=== PATIENT | female | born 1975 | race Caucasian/White ===

== ENCOUNTER 2018-07-17 17:53 | Emergency (ER) | payer OTHER ==
[~2018-07-17] VITALS: Ht 162.6 cm; Wt 77.1 kg
[~2018-07-17 17:53] MED LIST: ALPR1 PO; ARIP10 PO; ATEN50 PO; CARBOPLATIN; CLON.5 PO; CONEST1.25 PO; FLUO10 PO; HYDACE5 PO; LISI5 PO; METR500 PO; MULVITMIND PO; NAPR500 PO; NITR100CA PO; PRAV20 PO; QUET100 PO; SIRO1 PO; SOTO80 PO; SULTRIDS PO; TACR1 PO; TRAZ100 PO; VENL150ER PO; [UNRECOGNIZED DRUG - REMARK]
[2018-07-17] MEDS ORDERED: Naprosyn500 MG PO (20:39)
[2018-07-17] MEDS ORDERED: Robaxin500 MG PO (20:39)
[2018-07-17] MEDS ORDERED: ROSU5 PO (20:53)
[2018-07-17] MEDS ORDERED: ASPI81CH PO (20:54)
== END 2018-07-17 20:58 | disposition home or self-care (01) ==
LOC: ER 17:53
DX: M54.2 Cervicalgia (principal); Z88.8 Allergy status to other drugs, medicaments and biological substances; Z79.899 Other long term (current) drug therapy; Z87.891 Personal history of nicotine dependence
CPT/HCPCS: 99283

== ENCOUNTER 2019-03-06 08:55 | Emergency (ER) | payer OTHER ==
[~2019-03-06] VITALS: Ht 162.6 cm; Wt 74.8 kg
[~2019-03-06 08:55] MED LIST changes: +ASPI81CH PO; -FLUO10 PO; +Hair, Skin & N1 EACH PO; -LISI5 PO; +Lisinopril2.5 MG PO; -MULVITMIND PO; +Naprosyn500 MG PO; +Prozac40 MG PO; +ROSU5 PO; +Robaxin500 MG PO
[2019-03-06 09:34] LABS: Source, Urine Clean Catch
[2019-03-06 09:46] LABS: Blood, Urine 4+ (Neg); Glucose Qualitative, Urine Neg (Neg); Ketones, Urine 1+ (Neg); Leukocyte Esterase, Urine 1+ (Neg); Nitrite, Urine Pos (Neg); Protein, Urine 3+ (Neg); Specific Gravity, Urine 1.025 (1.003-1.022); Urobilinogen, Urine 2+ (Normal)
[2019-03-06 09:55] LABS: Appearance, Urine Hazy (Clear); Bacteria Mod /hpf; Bilirubin, Urine 2+ (Neg); Color, Urine Yellow (P-Yellow); Mucus Light (0-Heavy); Red Blood Cells, Urine 0-2 /hpf (0-2); Squamous Epithelial Cells Mod /hpf (Few)
[2019-03-06 10:01] LABS: BASOPHILS ABSOLUTE AUTO 0.01 K/mm3 (0.00-0.23); BASOPHILS PERCENT AUTO 0 % (0-2); EOSINOPHILS ABSOLUTE AUTO 0.07 K/mm3 (0.00-0.68); EOSINOPHILS PERCENT AUTO 1 % (0-6); Hematocrit 41.2 % (33.0-51.0); Hemoglobin 13.3 g/dL (11.5-16.0); IMMATURE GRAN ABSOLUTE AUTO 0.03 K/mm3 (0.00-0.10); IMMATURE GRAN PERCENT AUTO 0 % (0-1); LYMPHOCYTES PERCENT AUTO 15 % (21-46); MONOCYTES ABSOLUTE AUTO 0.81 K/mm3 (0.16-1.47); MONOCYTES PERCENT AUTO 7 % (4-13); Mean Corpuscular HGB 28.4 pg (26.0-34.0); Mean Corpuscular HGB Conc 32.3 g/dL (31.5-36.5); Mean Corpuscular Volume 88 fL (80-100); Mean Platelet Volume 10.2 fL (9.1-12.4); NEUTROPHILS ABSOLUTE AUTO 9.08 K/mm3 (1.96-9.15); NEUTROPHILS PERCENT AUTO 77 % (41-73); Platelet Count 268 K/mm3 (150-400); RDW Coefficient Variation 12.4 % (11.7-14.2); RDW Standard Deviation 39.8 fL (35.1-46.3); Red Blood Cell Count 4.69 M/mm3 (3.80-5.20)
[2019-03-06 10:20] LABS: Albumin, Blood 3.2 g/dL (3.4-5.0); Albumin/Globulin Ratio 0.7 (0.8-1.8); Bilirubin, Total 0.4 mg/dL (0.1-1.0); Bun/Creatinine Ratio 15.5 (12.0-20.0); Calcium, Blood 9.3 mg/dL (8.5-10.1); Creatinine, Blood 1.1 mg/dL (0.40-1.00); Globulin, Blood 4.5 g/dL (2.2-4.0); Potassium, Blood 3.9 mmol/L (3.5-5.5); Total Protein, Blood 7.7 g/dL (6.4-8.2)
== END 2019-03-06 15:15 | disposition short-term general hospital (02) ==
LOC: ER 08:55
PROVIDERS: Emergency Medicine
DX: K35.80 Unspecified acute appendicitis (principal); I48.91 Unspecified atrial fibrillation; I42.8 Other cardiomyopathies; Z94.1 Heart transplant status; Z88.8 Allergy status to other drugs, medicaments and biological substances; Z79.82 Long term (current) use of aspirin; Z79.899 Other long term (current) drug therapy
CPT/HCPCS: 36415; 74177; 80053; 81001; 83690; 85025; 96361; 96365-59; 96375; 99285-25; J1170; J2405; J2543; J7120; J7507; Q9967

== ENCOUNTER 2019-03-15 10:17 | Observation (INO) | payer OTHER ==
[~2019-03-15] VITALS: Ht 162.6 cm; Wt 76.3 kg
[~2019-03-15 10:17] MED LIST changes: -ASPI81CH PO; +Aspirin EC81 MG PO; +Prozac20 MG PO; -Prozac40 MG PO; +ROSU10TA PO; -ROSU5 PO
[2019-03-15 11:03] LABS: BASOPHILS ABSOLUTE AUTO 0.03 K/mm3 (0.00-0.23); BASOPHILS PERCENT AUTO 0 % (0-2); EOSINOPHILS PERCENT AUTO 0 % (0-6); Hematocrit 45.3 % (33.0-51.0); Hemoglobin 15.1 g/dL (11.5-16.0); IMMATURE GRAN ABSOLUTE AUTO 0.11 K/mm3 (0.00-0.10); IMMATURE GRAN PERCENT AUTO 1 % (0-1); LYMPHOCYTES ABSOLUTE AUTO 1.69 K/mm3 (0.84-5.20); LYMPHOCYTES PERCENT AUTO 8 % (21-46); MONOCYTES ABSOLUTE AUTO 0.58 K/mm3 (0.16-1.47); MONOCYTES PERCENT AUTO 3 % (4-13); Mean Corpuscular HGB 28.8 pg (26.0-34.0); Mean Corpuscular HGB Conc 33.3 g/dL (31.5-36.5); Mean Corpuscular Volume 86 fL (80-100); Mean Platelet Volume 10.2 fL (9.1-12.4); NEUTROPHILS ABSOLUTE AUTO 17.64 K/mm3 (1.96-9.15); NEUTROPHILS PERCENT AUTO 88 % (41-73); Platelet Count 613 K/mm3 (150-400); RDW Coefficient Variation 12.1 % (11.7-14.2); RDW Standard Deviation 38.3 fL (35.1-46.3); Red Blood Cell Count 5.25 M/mm3 (3.80-5.20); White Blood Cell Count 20.05 K/mm3 (4.00-11.30)
[2019-03-15 11:20] LABS: Albumin, Blood 3.2 g/dL (3.4-5.0); Albumin/Globulin Ratio 0.7 (0.8-1.8); Bilirubin, Total 0.4 mg/dL (0.1-1.0); Bun/Creatinine Ratio 15.7 (12.0-20.0); Calcium, Blood 9.7 mg/dL (8.5-10.1); Creatinine, Blood 1.78 mg/dL (0.40-1.00); Globulin, Blood 4.9 g/dL (2.2-4.0); Potassium, Blood 4.2 mmol/L (3.5-5.5); Total Protein, Blood 8.1 g/dL (6.4-8.2)
[2019-03-15] MEDS ORDERED: MYCO250 PO (13:18)
[2019-03-15] MEDS ORDERED: CONEST1.25 PO (13:18)
[2019-03-15] MEDS ORDERED: Fish Oil Conc1000 MG PO (13:19)
[2019-03-15] MEDS ORDERED: MAGNESIUM OXID500 MG PO (13:19)
[2019-03-15] MEDS ORDERED: Oyster Shell C500 MG PO (13:19)
--- NOTE | 2019-03-15 15:30 | NUR ---
PT ARRIVED TO THE MEDICAL FLOOR FROM THE ER A/O X3, PLEASANT AND COOPERATIVE, VIA WHEELCHAIR, AT THE TIME OF ARRIVAL THE PT REPORTED MILD NAUSEA, HOWEVER, SOME ABD PAIN FROM VOMITING, A CALL WAS MADE TO DR. FOWLER AND A ORDER TO GIVE PHENERGAN WAS GIVEN, THE PT APPEARS TO BE BREATHING EASILY ON RA, THE PT WAS ORIENTED TO THE ROOM LAYOUT AND CALL SYSTEM, IV FLUIDS STARTED, CALL LIGHT IN REACH, WILL CONTINUE TO MONITOR AND ASSESS FOR CHANGES
[2019-03-15 20:17] LABS: Source, Urine Clean Catch
[2019-03-15 20:20] LABS: Blood, Urine 3+ (Neg); Glucose Qualitative, Urine Neg (Neg); Ketones, Urine 2+ (Neg); Leukocyte Esterase, Urine 1+ (Neg); Nitrite, Urine Neg (Neg); Protein, Urine 2+ (Neg); Specific Gravity, Urine 1.025 (1.003-1.022); Urobilinogen, Urine NORM (Normal)
[2019-03-15 20:26] LABS: Appearance, Urine Hazy (Clear); Bilirubin, Urine 1+ (Neg); Color, Urine Yellow (P-Yellow)
[2019-03-15 20:27] LABS: Bacteria Many /hpf; Mucus Heavy (0-Heavy); Red Blood Cells, Urine 0-2 /hpf (0-2); Squamous Epithelial Cells Mod /hpf (Few)
[2019-03-16 01:26] LABS: Campylobacter Sp Not Detected (NOT DETECT); Cryptosporidium Not Detected (NOT DETECT); Cyclospora Cayetanensis Not Detected (NOT DETECT); E. Coli O157 Not Detected (NOT DETECT); Enteroaggregative E. coli-EAEC Not Detected (NOT DETECT); Enteropathogenic E. coli-EPEC Not Detected (NOT DETECT); Enterotoxigenic E. coli-ETEC Not Detected (NOT DETECT); Plesiomonas Shigelloides Not Detected (NOT DETECT); Salmonella Sp Not Detected (NOT DETECT); Shiga Toxin-prod E. coli-STEC Not Detected (NOT DETECT); Shigella/Enteroin E. coli-EIEC Not Detected (NOT DETECT); Vibrio Cholerae Not Detected (NOT DETECT); Vibrio Sp Not Detected (NOT DETECT); Yersinia Enterocolitica Not Detected (NOT DETECT)
[2019-03-16 01:27] LABS: Adenovirus F 40/41 Not Detected (NOT DETECT); Astrovirus Not Detected (NOT DETECT); Entamoeba Histolytica Not Detected (NOT DETECT); Giardia Lamblia Not Detected (NOT DETECT); Norovirus GI/GII Not Detected (NOT DETECT); Rotavirus A Not Detected (NOT DETECT); Sapovirus Not Detected (NOT DETECT)
[2019-03-16 04:44] LABS: Bun/Creatinine Ratio 17.8 (12.0-20.0); Calcium, Blood 8.3 mg/dL (8.5-10.1); Creatinine, Blood 1.18 mg/dL (0.40-1.00); Potassium, Blood 3.9 mmol/L (3.5-5.5)
--- NOTE | 2019-03-16 06:19 | NUR ---
SHIFT SUMMARY PATIENT ALERT AND ORIENTED. ABLE TO WALK TO THE BATHROOM WITH MINIMAL DIFFICULTY. UA AND STOOL SAMPLE COLLECTED. RESULTS ARE BACK FROM LAB. SHE REPORTS TO HAVE BEEN FEELING BETTER OVER NIGHT THAN PREVIOUS DAYS AND DID NOT REQUIRE ANY NAUSEA MEDICATION. IV PATENT AND INFUSING. BED IN LOWEST POSITION WITH WHEELS LOCKED. CALL LIGHT AND BELONGINGS WITHIN REACH. REPORT GIVEN TO ONCOMING RN.
[2019-03-16] MEDS ORDERED: ONDA4ODT PO (10:43)
[2019-03-16] MEDS ORDERED: Myfortic360 MG PO (11:39)
[2019-03-16] MEDS ORDERED: PRED20 PO (13:09)
--- NOTE | 2019-03-16 13:22 | NUR ---
PT DISCHARGED PT DISCHARGED AT 1322. PT IN STABLE CONDITION WITH VSS. PT EDUCATED ON DC INSTRUCTIONS, NEW MEDS, & FOLLOW UP APPOINTMENTS. NO CHANGES IN ASSESSMENT AT THIS TIME. PT WHEELED OUT BY [employer] TO PICK PT UP.
== END 2019-03-16 13:22 | disposition home or self-care (01) ==
LOC: ER 10:17 → MEDS 10:18 → ENPENDDIS 03-16 10:00 → MEDS 03-16 13:22
PROVIDERS: Emergency Medicine; ADMIT Internal Medicine
DX: N17.9 Acute kidney failure, unspecified (principal); D72.829 Elevated white blood cell count, unspecified; I11.0 Hypertensive heart disease with heart failure; I50.9 Heart failure, unspecified; I42.2 Other hypertrophic cardiomyopathy; I48.91 Unspecified atrial fibrillation; Z90.49 Acquired absence of other specified parts of digestive tract; Z94.1 Heart transplant status; Z90.710 Acquired absence of both cervix and uterus; Z95.0 Presence of cardiac pacemaker; Z88.8 Allergy status to other drugs, medicaments and biological substances; Z79.82 Long term (current) use of aspirin; Z79.899 Other long term (current) drug therapy; Z85.41 Personal history of malignant neoplasm of cervix uteri
CPT/HCPCS: 0097U; 36415; 74022; 80048; 80053; 80197; 81001; 85025; 87086; 90686; 96361; 96372-59; 96374; 96375; 96376; 99285-25; G0008; G0378; J1650; J2405; J2550; J7030; J7120; J7507; J7518

== ENCOUNTER 2021-05-26 07:59 | Day surgery (SDC) | payer OTHER ==
[~2021-05-26] VITALS: Ht 162.6 cm; Wt 82.4 kg
[~2021-05-26 07:59] MED LIST changes: +Fish Oil Conc1000 MG PO; +MAGNESIUM OXID500 MG PO; +MYCO250 PO; +Myfortic360 MG PO; +ONDA4ODT PO; +Oyster Shell C500 MG PO; +PRED20 PO
[2021-05-26] MEDS ORDERED: TACR1 (08:31)
[2021-05-26] MEDS ORDERED: SIRO1 (08:32)
--- NOTE | 2021-05-26 14:08 | NUR ---
05/26/21 1408 Jasbir Saini 0900-PATIENT CASE CANCELLED BY DOCTOR AND ANESTHESIA BECAUSE PATIENT CAME IN WITH A SORE THROAT AND CONGESTION.
== END 2021-05-26 09:00 | disposition home or self-care (01) ==
LOC: ORSCSDS 07:59
DX: R11.2 Nausea with vomiting, unspecified (principal); Z53.9 Procedure and treatment not carried out, unspecified reason
CPT/HCPCS: J7120

== ENCOUNTER 2021-07-13 09:22 | Day surgery (SDC) | payer OTHER ==
[~2021-07-13] VITALS: Ht 162.6 cm; Wt 81.7 kg
[~2021-07-13 09:22] MED LIST changes: +SIRO1; +TACR1
== END 2021-07-13 11:50 | disposition home or self-care (01) ==
LOC: ORSCSDS 09:22
PROVIDERS: Internal Medicine Gastroenterology
PROC: 0DB68ZX Excision of Stomach, Via Natural or Artificial Opening Endoscopic, Diagnostic (ICD-10-PCS; principal; 2021-07-13 11:00)
PROC: 0DB98ZX Excision of Duodenum, Via Natural or Artificial Opening Endoscopic, Diagnostic (ICD-10-PCS; principal; 2021-07-13 11:00)
DX: R11.2 Nausea with vomiting, unspecified (principal); I49.8 Other specified cardiac arrhythmias; I42.1 Obstructive hypertrophic cardiomyopathy; I10 Essential (primary) hypertension; Z94.1 Heart transplant status; F41.9 Anxiety disorder, unspecified; F43.10 Post-traumatic stress disorder, unspecified; K21.9 Gastro-esophageal reflux disease without esophagitis; K76.0 Fatty (change of) liver, not elsewhere classified; Z85.43 Personal history of malignant neoplasm of ovary; Z79.82 Long term (current) use of aspirin; Z79.899 Other long term (current) drug therapy
CPT/HCPCS: 88305; 88342; A9270; J2001; J2250; J2405; J2704; J7120

== ENCOUNTER 2022-04-01 16:33 | Emergency (ER) | payer OTHER ==
[~2022-04-01] VITALS: Ht 162.6 cm; Wt 81.7 kg
[2022-04-01 17:57] LABS: Influenza A, PCR NEGATIVE (NEGATIVE); Influenza B, PCR NEGATIVE (NEGATIVE); Resp Syncytial Virus, PCR NEGATIVE (NEGATIVE)
[2022-04-01 18:02] LABS: SARS-Cov-2 (COVID-19) PCR, MMC POSITIVE (NEGATIVE)
== END 2022-04-01 18:32 | disposition home or self-care (01) ==
LOC: ER 16:33
PROVIDERS: Physician Assistant
DX: U07.1 COVID-19 (principal); I48.91 Unspecified atrial fibrillation; Z88.8 Allergy status to other drugs, medicaments and biological substances; Z79.899 Other long term (current) drug therapy; Z79.82 Long term (current) use of aspirin
CPT/HCPCS: 0241U

== ENCOUNTER 2024-05-24 07:41 | Day surgery (SDC) | payer OTHER ==
[~2024-05-24] VITALS: Ht 162.6 cm; Wt 85.5 kg
[~2024-05-24 07:41] MED LIST changes: +Prozac40 MG PO; +QUET200 PO; +ROSUVASTATIN CALCIUM PO; +Robaxin750 MG PO; +SIROLIMUS PO; +TACROLIMUS PO
[2024-05-24] MEDS ORDERED: CYCL10 (07:58)
[2024-05-24] MEDS ORDERED: ASPI81CH (07:59)
[2024-05-24] MEDS ORDERED: Lactated Ringer's 1,000 ML IV ONE ×3 (08:04→10:00)
--- NOTE | 2024-05-24 09:24 | NUR ---
05/24/24 0924 Lashae Chan PT. DENIES ANY PAIN
[2024-05-24] MEDS ORDERED: propofoL 50 ML IV ONE (09:32)
--- NOTE | 2024-05-24 09:48 | NUR ---
05/24/24 0948 Lashae Chan PT. NOT CLEANED OUT. PER WAS JUST A FLEX SIGMOIDOSCCOPY
[2024-05-24 10:21] VITALS: BP 110/85
== END 2024-05-24 10:20 | disposition home or self-care (01) ==
LOC: ORSCSDS 07:41
PROVIDERS: Internal Medicine Gastroenterology
PROC: 0DJD8ZZ Inspection of Lower Intestinal Tract, Via Natural or Artificial Opening Endoscopic (ICD-10-PCS; principal; 2024-05-24 08:30)
DX: Z12.11 Encounter for screening for malignant neoplasm of colon (principal); F43.10 Post-traumatic stress disorder, unspecified; F41.9 Anxiety disorder, unspecified; I48.91 Unspecified atrial fibrillation; I10 Essential (primary) hypertension; K76.0 Fatty (change of) liver, not elsewhere classified; E66.9 Obesity, unspecified; Z68.32 Body mass index [BMI] 32.0-32.9, adult; Z79.82 Long term (current) use of aspirin; Z79.899 Other long term (current) drug therapy
CPT/HCPCS: J2704; J7120

== ENCOUNTER 2025-01-29 09:00 | Day surgery (SDC) | payer OTHER ==
[~2025-01-29] VITALS: Ht 162.6 cm; Wt 76.7 kg
[~2025-01-29 09:00] MED LIST changes: +ASPI81CH; +CYCL10; +METF500 PO
[2025-01-29 11:32] VITALS: BP 124/94
== END 2025-01-29 11:32 | disposition home or self-care (01) ==
LOC: ORSCSDS 09:00
PROVIDERS: Internal Medicine Gastroenterology
PROC: 0DJD8ZZ Inspection of Lower Intestinal Tract, Via Natural or Artificial Opening Endoscopic (ICD-10-PCS; principal; 2025-01-29 10:30)
DX: Z12.11 Encounter for screening for malignant neoplasm of colon (principal); Z94.1 Heart transplant status; F43.10 Post-traumatic stress disorder, unspecified; F41.9 Anxiety disorder, unspecified; E11.9 Type 2 diabetes mellitus without complications; Z79.84 Long term (current) use of oral hypoglycemic drugs; Z79.82 Long term (current) use of aspirin; Z79.899 Other long term (current) drug therapy
CPT/HCPCS: 82947; J2704